=== PATIENT | male | born 1970 | race Two or more races ===

== ENCOUNTER 2025-01-30 07:55 | Day surgery (SDC) | payer MEDICAID, SELFPAY ==
--- NOTE | 2025-01-27 07:47 | EKG_ITS ---
[facility] Test Date: 2025-01-27 Pat Name: MIGDALIA CONTRERAS Department: Room: - Gender: Male Clerk Stenographer: MG : 1970 Requested By: Osmar Pena Order Number: [id number] Reading MD: Osmar Pena Measurements Intervals [place] Rate: 61 P: 51 UT: 146 QRS: 71 QRSD: 104 T: 60 QT: 409 QTc: 413 Interpretive Statements SINUS RHYTHM No previous ECG available for comparison /[email or web address]/[id number]
[2025-01-27 10:20] LABS: Alanine Aminotransferase 22 U/L (10-49); Albumin, Serum 4.7 gm/dL (3.5-5.0); Albumin/Globulin Ratio 1.7 (1.2-2.2); Alkaline Phosphatase 83 U/L (46-116); Anion Gap 11 (7-16); Aspartate Amino Transferase 20 U/L (0-34); BUN/Creatinine Ratio 21 Ratio (12-20); Bilirubin,Total 0.5 mg/dL (0.3-1.2); Blood Urea Nitrogen 17 mg/dL (9-23); Calcium 9.7 mg/dL (8.3-10.6); Calcium (Corrected) 9.7 mg/dL (8.5-10.1); Carbon Dioxide 25.1 mMol/L (20.0-31.0); Chloride 105 mMol/L (98-107); Creatinine (Component) 0.8 mg/dL (0.6-1.3); Globulin 2.8 gm/dL (2.3-3.5); Glucose 112 mg/dL (74-106); Osmolality,Calculated 283 (275-295); Potassium 4.2 mMol/L (3.4-5.1); Sodium 141 mMol/L (136-145); Total Protein 7.5 gm/dL (5.7-8.2); eGFR > 60 See Note
[2025-01-30] VITALS (7 sets, daily range): BP systolic 93–122; BP diastolic 55–81; PULSE 55–64; RESP 14–20; TEMP 36.3–36.6; O2SAT 95–99; BMI 26.2
--- NOTE | 2025-01-30 09:16 | SUR.PREOP ---
Patient expressed gratitude for prayer before their procedure.
[2025-01-30] MEDS: RINGERS LACTATED 1000 ML 1,000 ML 60 ML IV (11:27)
--- NOTE | 2025-01-30 12:00 | SUR.OPER ---
Hand off report for lunch given to EUNICE Kirkpatrick
--- NOTE | 2025-01-30 12:07 | SUR.PHASEII ---
[id number] patient arrived to recovery resting in [facility], report received from Kaya MENA and Dr. Washington
--- NOTE | 2025-01-30 13:00 | SUR.PHASEII ---
1300 Patient meets discharge criteria from recovery, awake and alert, breathing unlabored, vital signs stable, denies pain and nausea, ate a jello and drinking 7up; tolerated well, voided in the restroom-passing gas, able to dress himself into his clothing, discharge instructions given to patient and patients with the assistance of the telephone interpreter translator Millie ID#[id number], patients signed discharge instructions. Patient given all his belongings prior to discharge, transported via wheelchair and left in a private vehicle.
== END 2025-01-30 13:00 | disposition home or self-care (01) ==
PROVIDERS: Anesthesiology; PCP Physician Assistant Medical; Referring Provider Specialist; Visit Provider Specialist
PROC: 0DJD8ZZ Inspection of Lower Intestinal Tract, Via Natural or Artificial Opening Endoscopic (ICD-10-PCS; CPT 45378; principal; 2025-01-30 09:45)
DX: Z12.11 Encounter for screening for malignant neoplasm of colon (principal); K64.2 Third degree hemorrhoids; K64.4 Residual hemorrhoidal skin tags; Z01.810 Encounter for preprocedural cardiovascular examination
CPT/HCPCS: 45378; 36415; 80053; 93005; A4649; J3490; J7120